=== PATIENT | female | born 1950 | race Caucasian/White ===

== ENCOUNTER → 2021-09-19 08:24 | Outpatient (BNVA) | payer MEDICARE, MEDICAID, SELFPAY | PROVIDERS: Visit Provider Nurse Practitioner Family | DX: Z13.89 Encounter for screening for other disorder (principal) ==

== ENCOUNTER → 2022-05-07 08:25 | Outpatient (BNVA) | payer OTHER, SELFPAY | PROVIDERS: Visit Provider Nurse Practitioner Family | DX: R25.1 Tremor, unspecified (principal); G25.81 Restless legs syndrome | CPT/HCPCS: 99212 ==